=== PATIENT | female | born 1945 | race Caucasian/White ===

== ENCOUNTER 2018-02-28 12:52 | Emergency (ER) | payer MEDICARE ==
[~2018-02-28] VITALS: Ht 170.2 cm; Wt 86.4 kg
[~2018-02-28 12:52] MED LIST: ASPI-1009 PO; CALC-642; CHOL100010 PO; COL100C PO; HCTZ25T PO; LISI-600 PO; METF-436 PO; OMEP-84 PO; VITA100T3 PO
[2018-02-28 15:49] VITALS: BP 137/45
== END 2018-02-28 15:50 | disposition home or self-care (01) ==
LOC: ER 12:53
DX: S60.221A Contusion of right hand, initial encounter (principal); I10 Essential (primary) hypertension; E11.9 Type 2 diabetes mellitus without complications; Z90.49 Acquired absence of other specified parts of digestive tract; Z90.710 Acquired absence of both cervix and uterus; Z88.0 Allergy status to penicillin; Z79.82 Long term (current) use of aspirin; Z79.84 Long term (current) use of oral hypoglycemic drugs; Z79.899 Other long term (current) drug therapy; W01.0XXA Fall on same level from slipping, tripping and stumbling without subsequent striking against object, initial encounter; Y93.89 Activity, other specified; Y92.89 Other specified places as the place of occurrence of the external cause; Y99.8 Other external cause status
CPT/HCPCS: 29125; 73130; 99284; A4565; A6449

== ENCOUNTER 2018-03-12 13:35 | Outpatient (CLI) | payer MEDICARE ==
[2018-03-12 13:40] VITALS: BP 141/84
== END 2018-03-12 14:45 | disposition home or self-care (01) ==
LOC: ORTHO 13:35
PROVIDERS: ATTEND Nurse Practitioner Family
DX: S63.656A Sprain of metacarpophalangeal joint of right little finger, initial encounter (principal); I10 Essential (primary) hypertension; E11.9 Type 2 diabetes mellitus without complications; Z90.710 Acquired absence of both cervix and uterus; Z88.0 Allergy status to penicillin; X58.XXXA Exposure to other specified factors, initial encounter; Y93.89 Activity, other specified; Y92.89 Other specified places as the place of occurrence of the external cause; Y99.8 Other external cause status
CPT/HCPCS: 99213

== ENCOUNTER 2018-03-30 11:37 | Outpatient (CLI) | payer MEDICARE ==
[2018-03-30 11:40] VITALS: BP 134/84
== END 2018-03-30 12:05 | disposition home or self-care (01) ==
LOC: ORTHO 11:37
PROVIDERS: ATTEND Nurse Practitioner Family
DX: S63.654D Sprain of metacarpophalangeal joint of right ring finger, subsequent encounter (principal); I10 Essential (primary) hypertension; E11.9 Type 2 diabetes mellitus without complications; Z88.0 Allergy status to penicillin; X58.XXXD Exposure to other specified factors, subsequent encounter
CPT/HCPCS: 99213

== ENCOUNTER 2022-01-27 20:21 | Emergency (ER) | payer MEDICARE ==
[~2022-01-27] VITALS: Ht 170.2 cm; Wt 82.3 kg
[~2022-01-27 20:21] MED LIST changes: -HCTZ25T PO; +HYDR25TA5 PO; -LISI-600 PO; +LISI20TA28 PO
--- NOTE | 2022-01-27 21:20 | NUR ---
SPOKE WITH DR. GUERRERO ABOUT HEAD STRIKE WITH LOC, NO BLOOD THINNERS. VERBAL ORDER FOR CT SCAN.
--- NOTE | 2022-01-28 00:03 | NUR ---
PT HEAD LAC STARTED TO BLEED AGAIN PRIOR TO BEING SEEN. PT WAS ASSISTED BY EMT TO CLEAN THE AREA AND DRESS THE WOUND. PT RESTING IN BED.
[2022-01-28] MEDS ORDERED: LIDOcaine 1% W/epiNEPHrine 1:200,000 10ml vial IJ ONE (00:10)
[2022-01-28] MEDS ORDERED: LIDOcaine 1% W/epiNEPHrine 1:100,000 20ml vial IJ ONE (00:20)
[2022-01-28 01:37] VITALS: BP 138/66
== END 2022-01-28 01:43 | disposition home or self-care (01) ==
LOC: ER 20:22
DX: S01.01XA Laceration without foreign body of scalp, initial encounter (principal); S06.9X9A Unspecified intracranial injury with loss of consciousness of unspecified duration, initial encounter; I10 Essential (primary) hypertension; E11.9 Type 2 diabetes mellitus without complications; Z90.49 Acquired absence of other specified parts of digestive tract; Z90.710 Acquired absence of both cervix and uterus; Z88.0 Allergy status to penicillin; Z79.82 Long term (current) use of aspirin; Z79.899 Other long term (current) drug therapy; W19.XXXA Unspecified fall, initial encounter; Y93.89 Activity, other specified; Y92.89 Other specified places as the place of occurrence of the external cause; Y99.8 Other external cause status
CPT/HCPCS: 12001; 70450; 99284

== ENCOUNTER 2022-10-31 21:06 | Emergency (ER) | payer MEDICARE ==
[~2022-10-31] VITALS: Ht 170.2 cm; Wt 82.3 kg
[~2022-10-31 21:06] MED LIST changes: -ASPI-1009 PO; -CALC-642; -CHOL100010 PO; +CHOL50004 PO; -COL100C PO; +CYAN-34 PO; +DULA0.75 SQ; -LISI20TA28 PO; -METF-436 PO; +METF-438 PO; +SERT-434 PO; -VITA100T3 PO
[2022-10-31 21:46] VITALS: BP 180/66
[2022-11-01 01:24] LABS: CLARITY,URINE SLIGHTLY CLOUDY (Clear); COLOR,URINE YELLOW (Yellow); GLUCOSE, URINE NEGATIVE (Neg); KETONES,URINE NEGATIVE (Neg); LEUKOCYTE ESTERASE ,URINE NEGATIVE (Neg); NITRITES, URINE NEGATIVE (Neg); OCCULT BLOOD,URINE TRACE-INTACT (Neg); PROTEIN,URINE NEGATIVE (Neg)
[2022-11-01 01:33] LABS: UA COLLECTION TYPE CLN CATCH MIDSTREAM
[2022-11-01 01:35] LABS: BACTERIA,URINE FEW /HPF (Neg); MUCUS STRANDS FEW /LPF (Neg); RBC,URINE 0-2 /HPF (0-2); SQUAMOUS EPITHELIAL CELL,UR MANY /LPF (FEW); WBC,URINE 0-4 /HPF (0-4)
[2022-11-01] MEDS ORDERED: ibuprofen tablet 400 MG TABLET PO ONE (02:15)
[2022-11-01] MEDS ORDERED: LIDOcaine 5% patch TP STA (02:15)
[2022-11-01] MEDS ORDERED: acetaminophen 325mg tablet PO ONE (02:15)
== END 2022-11-01 02:26 | disposition home or self-care (01) ==
LOC: ER 21:07
DX: M54.59 Other low back pain (principal); E11.9 Type 2 diabetes mellitus without complications; I10 Essential (primary) hypertension; Z90.49 Acquired absence of other specified parts of digestive tract; Z88.0 Allergy status to penicillin; Z79.899 Other long term (current) drug therapy; Z79.1 Long term (current) use of non-steroidal anti-inflammatories (NSAID); Z79.2 Long term (current) use of antibiotics; W19.XXXA Unspecified fall, initial encounter; Y93.89 Activity, other specified; Y92.89 Other specified places as the place of occurrence of the external cause; Y99.8 Other external cause status
CPT/HCPCS: 72131; 81001; 99284

== ENCOUNTER 2024-02-07 14:48 | Emergency (ER) | payer MEDICARE ==
[~2024-02-07] VITALS: Ht 170.2 cm; Wt 80.6 kg
[2024-02-07 14:53] VITALS: BP 176/62; PULSE 63; RESP 16; TEMP 98; O2SAT 99
[2024-02-07] MEDS ORDERED: TRAM50TA2 PO (15:54)
== END 2024-02-07 16:46 | disposition home or self-care (01) ==
LOC: ER 14:48
DX: M54.50 Low back pain, unspecified (principal); I10 Essential (primary) hypertension; E11.9 Type 2 diabetes mellitus without complications; M25.552 Pain in left hip; R07.89 Other chest pain; Z88.0 Allergy status to penicillin; Z79.899 Other long term (current) drug therapy; Z90.710 Acquired absence of both cervix and uterus; W19.XXXA Unspecified fall, initial encounter; Y93.89 Activity, other specified; Y92.89 Other specified places as the place of occurrence of the external cause; Y99.8 Other external cause status
CPT/HCPCS: 72100; 72170; 99284

== ENCOUNTER 2024-02-23 11:56 | Emergency (ER) | payer MEDICARE ==
[~2024-02-23] VITALS: Ht 170.2 cm; Wt 81.8 kg
[2024-02-23 13:13] VITALS: TEMP 98
[2024-02-23] MEDS: hydrALAZINE 20mg/ml inj. IV ONE (13:35)
[2024-02-23] MEDS ORDERED: niCARDipine-NS 40mg/200ml IVPB 200 ML IV SCH (13:45)
[2024-02-23] MEDS: niCARDipine-NS 40mg/200ml IVPB 200 ML IV SCH (13:59)
[2024-02-23 14:10] LABS: BASOPHILS % (AUTO) 0.4 % (0-1); EOSINOPHILS # (AUTO) 0.2 X10'3 (0-0.9); EOSINOPHILS % (AUTO) 2.1 % (0-6); HEMATOCRIT 39.7 % (35.0-45.0); HEMOGLOBIN 13.5 g/dl (12.0-16.0); LYMPHOCYTES # (AUTO) 1.3 X10'3 (1.1-4.8); LYMPHOCYTES % (AUTO) 13.6 % (21-51); MEAN CORPUSCULAR HEMOGLOBIN 28.8 PG (27.0-31.0); MEAN CORPUSCULAR VOLUME 84.7 FL (78-98); MONOCYTES # (AUTO) 0.5 X10'3 (0-0.9); MONOCYTES % (AUTO) 5.6 % (2-12); NEUTROPHILS # (AUTO) 7.6 X10'3 (1.8-7.7); NEUTROPHILS % (AUTO) 78.3 % (42-75); PLATELET COUNT 153 X10'3 (140-440); RED BLOOD COUNT 4.69 X10'6 (4.20-5.60); RED CELL DISTRIBUTION WIDTH 15.7 % (11.5-14.5); WHITE BLOOD COUNT 9.7 X10'3 (4.5-11.0)
[2024-02-23 14:13] LABS: APTT 27 SECONDS (22-32); INR 1.1 INR; PROTHROMBIN TIME 11.6 SECONDS (9.0-12.0)
[2024-02-23 14:17] LABS: ALANINE AMINOTRANSFERASE 36 U/L (12-78); ALBUMIN 3.5 G/DL (3.4-5.0); ALBUMIN/GLOBULIN RATIO 0.9 (1.1-1.5); ALKALINE PHOSPHATASE 124 IU/L (46-116); ANION GAP 11 (8-16); ASPARTATE AMINO TRANSFERASE 31 U/L (10-37); BILIRUBIN,TOTAL 0.8 MG/DL (0.1-1.0); BLOOD UREA NITROGEN 12 MG/DL (7-18); BUN/CREATININE RATIO 14.5 (10.0-20.0); CALCIUM 9.1 MG/DL (8.5-10.1); CHLORIDE 101 MMOL/L (99-107); CREATININE 0.83 MG/DL (0.40-0.90); GLUCOSE 210 MG/DL (70-104); POTASSIUM 3.7 MMOL/L (3.5-5.1); SODIUM 139 MMOL/L (135-145); TOTAL PROTEIN 7.4 G/DL (6.4-8.2); eCRCL 56 ML/MIN; eGFR 67 ML/MIN
[2024-02-23 14:31] VITALS: BP 151/79; PULSE 83; RESP 20; O2SAT 97
[2024-02-23] MEDS: phytonadione inj. 10 MG in normal saline 100ml IV soln 100 ML IV ONE (14:42)
== END 2024-02-23 14:53 | disposition admitted as inpatient to this hospital (09) ==
LOC: ER 11:57
DX: I62.00 Nontraumatic subdural hemorrhage, unspecified (principal); I10 Essential (primary) hypertension; E11.9 Type 2 diabetes mellitus without complications; Z90.49 Acquired absence of other specified parts of digestive tract; Z90.710 Acquired absence of both cervix and uterus; Z95.0 Presence of cardiac pacemaker; Z88.0 Allergy status to penicillin; Z79.899 Other long term (current) drug therapy
CPT/HCPCS: 36415; 70450; 72125; 80053; 85025; 85610; 85730; 93005; 96365; 96375; 99291; C1758; J0360; J3430; J3490

== ENCOUNTER 2024-08-19 05:46 | Inpatient (IN) | payer MEDICARE ==
[2024-08-12 11:13] LABS: BILIRUBIN,URINE NEGATIVE (Neg); CLARITY,URINE CLOUDY (Clear); COLOR,URINE YELLOW (Yellow); GLUCOSE, URINE NEGATIVE (Neg); KETONES,URINE TRACE mg/dl (Neg); LEUKOCYTE ESTERASE ,URINE NEGATIVE (Neg); NITRITES, URINE NEGATIVE (Neg); OCCULT BLOOD,URINE NEGATIVE (Neg); PH,URINE 5.5 (4.8-8.0); PROTEIN,URINE NEGATIVE (Neg); UA COLLECTION TYPE CLN CATCH MIDSTREAM; UROBILINOGEN,URINE 0.2 E.U/dL (0.2-1.0)
[2024-08-12 11:14] LABS: BASOPHILS # (AUTO) 0.1 X10'3 (0-0.2); BASOPHILS % (AUTO) 0.6 % (0-1); EOSINOPHILS # (AUTO) 0.2 X10'3 (0-0.9); EOSINOPHILS % (AUTO) 1.7 % (0-6); LYMPHOCYTES # (AUTO) 1.3 X10'3 (1.1-4.8); LYMPHOCYTES % (AUTO) 14.8 % (21-51); MEAN CORPUSCULAR HGB CONC 33.9 g/dL (33.0-36.5); MEAN CORPUSCULAR VOLUME 85.6 FL (78-98); MEAN PLATELET VOLUME 8.5 FL (7.4-10.4); MONOCYTES # (AUTO) 0.6 X10'3 (0-0.9); MONOCYTES % (AUTO) 6.6 % (2-12); NEUTROPHILS # (AUTO) 6.9 X10'3 (1.8-7.7); NEUTROPHILS % (AUTO) 76.3 % (42-75); PRE OP HEMATOCRIT 40.6 % (35.0-45.0); PRE OP HEMOGLOBIN 13.8 g/dL (12.0-16.0); PRE OP PLATELET COUNT 158 X10'3 (140-440); RED BLOOD COUNT 4.75 X10'6 (4.20-5.60); RED CELL DISTRIBUTION WIDTH 15.4 % (11.5-14.5)
[2024-08-12 11:22] LABS: SQUAMOUS EPITHELIAL CELL,UR MANY /LPF (FEW)
[2024-08-12 11:23] LABS: BACTERIA,URINE 2+ /HPF (Neg); CAL OXALATE CRYSTALS 3+ /HPF (NEGATIVE); MUCUS STRANDS MANY /LPF (Neg)
[2024-08-12 11:24] LABS: RBC,URINE 0-2 /HPF (0-2); TRANSITIONAL EPI CELLS,URINE FEW /HPF; WBC,URINE 0-4 /HPF (0-4)
[2024-08-12 11:27] LABS: PRE OP INR 1.1 INR; PRE OP PROTIME 11.4 SECONDS (9.0-12.0)
[2024-08-12 11:34] LABS: ALBUMIN 3.7 G/DL (3.4-5.0); ALBUMIN/GLOBULIN RATIO 0.9 (1.1-1.5); ALKALINE PHOSPHATASE 81 IU/L (46-116); BLOOD UREA NITROGEN 16 MG/DL (7-18); BUN/CREATININE RATIO 17.4 (10.0-20.0); CALCIUM 9.5 MG/DL (8.5-10.1); CHLORIDE 101 MMOL/L (99-107); CREATININE 0.92 MG/DL (0.40-0.90); PRE OP ALT 32 U/L (30-65); PRE OP ANION GAP 11 (8-16); PRE OP AST 30 U/L (10-37); PRE OP BILIRUB, TOTAL 0.8 MG/DL (0.0-1.0); PRE OP GLUCOSE 131 MG/DL (70-104); PRE OP POTASSIUM 3.7 MMOL/L (3.4-5.1); PRE OP SODIUM 139 MMOL/L (135-145); TOTAL CARBON DIOXIDE 27.5 MMOL/L (24-32); TOTAL PROTEIN 7.9 G/DL (6.4-8.2); eGFR 59 ML/MIN
[2024-08-19] VITALS (30 sets, daily range): BP systolic 118–178; BP diastolic 53–83; PULSE 60–82; RESP 10–22; TEMP 97.4–98.1; O2SAT 92–100
[~2024-08-19] VITALS: Ht 170.2 cm; Wt 81.1 kg
[~2024-08-19 05:46] MED LIST changes: +DICL100G59 TOP; +LISI10TA27 PO; -OMEP-84 PO
[2024-08-19] MEDS: VANCOMYCIN 1,500MG inj. 1,500 MG in normal saline 500ml IV soln 300 ML IV ONE (06:28)
[2024-08-19] MEDS: ringers solution, lacted 1,000 ML IV SCH (06:28)
[2024-08-19] MEDS: famotidine 20mg tablet PO ONE (06:28)
[2024-08-19] MEDS ORDERED: iohexol 350MG/ML 100ml bottle IV ONE (08:17)
[2024-08-19] MEDS ORDERED: sevoflurane 250ml liquid IH ONE (08:23)
[2024-08-19] MEDS ORDERED: fentaNYL/PF 50MCG/1 ML 2ML syringe ONE (08:24)
[2024-08-19] MEDS ORDERED: APIX5TAB3 PO (08:24)
[2024-08-19] MEDS ORDERED: propofol inj 20 ML IV ONE (08:25)
[2024-08-19] MEDS ORDERED: midazolam 1 mg/ML 2ml injection ONE (08:25)
[2024-08-19] MEDS ORDERED: heparin 1,000unit/ml 10ml vial 10 ML ONE (08:51)
[2024-08-19] MEDS ORDERED: rocuronium 10mg/ml inj IV ONE (08:51)
[2024-08-19] MEDS ORDERED: proCHLORperazine 10 MG/2 ml inj IV PRN ×2 (08:55→09:30)
[2024-08-19] MEDS ORDERED: ondansetron/PF 4mg/2ml inj IV PRN ×2 (08:55→09:30)
[2024-08-19] MEDS ORDERED: morphine 2 MG/ML inj. syringe IV PRN (08:55)
[2024-08-19] MEDS ORDERED: meperidine/PF 25mg/ml syringe IV PRN ×3 (08:55)
[2024-08-19] MEDS ORDERED: morphine 4 MG/ML inj SYRINge IV PRN (08:55)
[2024-08-19] MEDS ORDERED: ringers solution, lacted 1,000 ML IV SCH (08:55)
[2024-08-19] MEDS ORDERED: labetalol 20mg/4ml (5mg/ml) syringe IV PRN ×2 (08:55→09:30)
[2024-08-19] MEDS ORDERED: glycopyrrolate 0.2mg/ml inj ONE (09:08)
[2024-08-19] MEDS ORDERED: neostigmine methylsulfate 1 MG/ML 10ml vial ONE (09:08)
[2024-08-19] MEDS ORDERED: docusate sod 100mg capsule PO PRN (09:30)
[2024-08-19] MEDS ORDERED: potassium Cl 40MEQ/1/2NS 520ml 520 ML IV PRN (09:30)
[2024-08-19] MEDS ORDERED: DEXTROSE 15 GM of carb/4 tabs (each vial/BOTTLE has 4 tablets) PO PRN ×2 (09:30)
[2024-08-19] MEDS ORDERED: acetaminophen 325mg tablet PO PRN (09:30)
[2024-08-19] MEDS ORDERED: pantoprazole 40mg Tablet.DR PO PRN (09:30)
[2024-08-19] MEDS ORDERED: magnesium sulf-water 4G/100mL 100 ML IV PRN (09:30)
[2024-08-19] MEDS ORDERED: hydrALAZINE 20mg/ml inj. IV PRN (09:30)
[2024-08-19] MEDS ORDERED: magnesium sulf-water 2g/50mL 50 ML IV PRN (09:30)
[2024-08-19] MEDS ORDERED: diphenhydrAMINE 25mg capsule PO PRN (09:30)
[2024-08-19] MEDS ORDERED: glucagon, human recombinant 1mg kit SUBCUT PRN (09:30)
[2024-08-19] MEDS ORDERED: potassium CL 10mEq/100ml bag 100 ML IV PRN (09:30)
[2024-08-19] MEDS ORDERED: HYDROcodone/acetaminophen 5mg/325mg tablet PO PRN (09:30)
[2024-08-19] MEDS ORDERED: ALPRAZolam 0.25mg tablet PO PRN (09:30)
[2024-08-19] MEDS ORDERED: dextrose 50%-water 50ml dispensing syringe IV PRN ×2 (09:30)
[2024-08-19] MEDS ORDERED: potassium Cl 40MEQ/270ML bag 250 ML IV PRN (09:30)
[2024-08-19] MEDS ORDERED: potassium Cl 20mEq/100mL bag 100 ML IV PRN (09:30)
[2024-08-19] MEDS ORDERED: potassium Cl 20 mEq SR tablet PO PRN (09:30)
[2024-08-19] MEDS ORDERED: normal saline 1000ml 1,000 ML IV SCH (09:30)
[2024-08-19] MEDS ORDERED: LIDOCAINE 2%/EPI 1:100,000 inj. Multi-dose 20 ML VIAL ONE (11:12)
[2024-08-19] MEDS: INSULIN LISPRO 100 UNIT/ML INSULN.PEN MULTI-DOSE SQ SCH (12:00)
[2024-08-19] MEDS ORDERED: INSULIN LISPRO 100 UNIT/ML INSULN.PEN MULTI-DOSE SQ SCH (12:00)
[2024-08-19] MEDS: sod chloride 0.9% 10ml flush syringe IV SCH (16:00)
[2024-08-19] MEDS ORDERED: non-formulary drug (Metformin HCl 1 TAB) PO SCH (20:00)
[2024-08-19] MEDS: VANCOMYCIN 1GM 200ML H20 (PEG) 200 ML IV SCH (22:32)
[2024-08-19] MEDS: sertraline 50mg tablet PO SCH (22:36)
[2024-08-20 02:00] VITALS: BP 127/47; PULSE 57; RESP 19; TEMP 97.6; O2SAT 95
[2024-08-20 06:11] LABS: BASOPHILS % (AUTO) 0.4 % (0-1); EOSINOPHILS # (AUTO) 0.1 X10'3 (0-0.9); EOSINOPHILS % (AUTO) 2.2 % (0-6); HEMATOCRIT 38.1 % (35.0-45.0); HEMOGLOBIN 12.9 g/dl (12.0-16.0); LYMPHOCYTES % (AUTO) 14.4 % (21-51); MEAN CORPUSCULAR HGB CONC 33.7 g/dL (33.0-36.5); MEAN CORPUSCULAR VOLUME 86.1 FL (78-98); MONOCYTES # (AUTO) 0.4 X10'3 (0-0.9); MONOCYTES % (AUTO) 6.3 % (2-12); NEUTROPHILS # (AUTO) 5.1 X10'3 (1.8-7.7); NEUTROPHILS % (AUTO) 76.7 % (42-75); PLATELET COUNT 117 X10'3 (140-440); RED BLOOD COUNT 4.43 X10'6 (4.20-5.60); RED CELL DISTRIBUTION WIDTH 15.3 % (11.5-14.5); WHITE BLOOD COUNT 6.6 X10'3 (4.5-11.0)
[2024-08-20 06:20] LABS: INR 1.1 INR; PROTHROMBIN TIME 11.4 SECONDS (9.0-12.0)
[2024-08-20 06:39] LABS: ALANINE AMINOTRANSFERASE 26 U/L (12-78); ALBUMIN 3.2 G/DL (3.4-5.0); ALBUMIN/GLOBULIN RATIO 0.9 (1.1-1.5); ALKALINE PHOSPHATASE 86 IU/L (46-116); ANION GAP 9 (8-16); ASPARTATE AMINO TRANSFERASE 28 U/L (10-37); BILIRUBIN,TOTAL 1.1 MG/DL (0.1-1.0); BLOOD UREA NITROGEN 9 MG/DL (7-18); BUN/CREATININE RATIO 10.5 (10.0-20.0); CALCIUM 8.5 MG/DL (8.5-10.1); CHLORIDE 106 MMOL/L (99-107); CREATININE 0.86 MG/DL (0.40-0.90); GLUCOSE 162 MG/DL (70-104); MAGNESIUM 1.9 MG/DL (1.5-2.4); POTASSIUM 3.5 MMOL/L (3.5-5.1); PRO BRAIN NATRIURETIC PEPTIDE 741 PG/ML (0-450); SODIUM 142 MMOL/L (135-145); TOTAL CARBON DIOXIDE 27.5 MMOL/L (24-32); TOTAL PROTEIN 6.6 G/DL (6.4-8.2); eCRCL 53 ML/MIN; eGFR 64 ML/MIN
[2024-08-20 06:56] VITALS: BP 172/71; PULSE 60; RESP 13; TEMP 97.6; O2SAT 99
[2024-08-20 07:53] VITALS: BP_SYST 172; PULSE 60
[2024-08-20] MEDS: lisinopril 10 MG tablet PO SCH (07:53)
[2024-08-20] MEDS: HYDROchlorothiazide 25mg tablet PO SCH (07:53)
[2024-08-20] MEDS: cholecalciferol (vitamin D3) 1,000 unit (25mcg) tablet PO SCH (07:53)
[2024-08-20] MEDS: apixaban 5mg tablet PO SCH (07:53)
[2024-08-20] MEDS ORDERED: CYANOCOBALAMIN PO SCH (08:00)
[2024-08-20 08:20] VITALS: RESP 13; O2SAT 99
== END 2024-08-20 12:45 | disposition home or self-care (01) | DRG 274 ==
LOC: PAS IN 05:46 → PCU 3S 17:25
PROVIDERS: ADMIT Student in an Organized Health Care Education/Training Program; ATTEND Student in an Organized Health Care Education/Training Program
PROC: B24BZZ4 Ultrasonography of Heart with Aorta, Transesophageal (ICD-10-PCS; 2024-08-19)
PROC: 02L73DK Occlusion of Left Atrial Appendage with Intraluminal Device, Percutaneous Approach (ICD-10-PCS; principal; 2024-08-19 08:23)
DX: I48.91 Unspecified atrial fibrillation (principal); Z00.6 Encounter for examination for normal comparison and control in clinical research program; I10 Essential (primary) hypertension; E11.9 Type 2 diabetes mellitus without complications; E78.5 Hyperlipidemia, unspecified; Z88.0 Allergy status to penicillin
CPT/HCPCS: 33340; 36415; 71045; 71046; 76937; 80053; 81001; 82948; 83036; 83735; 83880; 85025; 85347; 85610; 85730; 86885; 86900; 86901; 86920; 87081; 93005; 93308; 93312; 93325; A4615; A4618; A6258; A6449; C1760; C1889; C1893; G0378; J1644; J1815; J2250; J2704; J2710; J3010; J3370; J3372; J3490; J7040; J7120; Q9967

== ENCOUNTER 2024-10-11 10:45 | Day surgery (SDC) | payer MEDICARE ==
[2024-10-11] VITALS (13 sets, daily range): BP systolic 156–223; BP diastolic 68–107; PULSE 60–80; RESP 10–12; TEMP 97.9; O2SAT 97–100
[~2024-10-11] VITALS: Ht 170.2 cm; Wt 81.6 kg
[~2024-10-11 10:45] MED LIST changes: +APIX5TAB3 PO
[2024-10-11 11:44] LABS: BASOPHILS % (AUTO) 0.5 % (0-1); EOSINOPHILS # (AUTO) 0.2 X10'3 (0-0.9); EOSINOPHILS % (AUTO) 2.1 % (0-6); HEMOGLOBIN 13.5 g/dl (12.0-16.0); LYMPHOCYTES # (AUTO) 1.1 X10'3 (1.1-4.8); LYMPHOCYTES % (AUTO) 15.9 % (21-51); MEAN CORPUSCULAR HEMOGLOBIN 29.5 PG (27.0-31.0); MEAN CORPUSCULAR HGB CONC 34.7 g/dL (33.0-36.5); MEAN CORPUSCULAR VOLUME 84.9 FL (78-98); MEAN PLATELET VOLUME 7.9 FL (7.4-10.4); MONOCYTES # (AUTO) 0.4 X10'3 (0-0.9); MONOCYTES % (AUTO) 5.8 % (2-12); NEUTROPHILS # (AUTO) 5.5 X10'3 (1.8-7.7); NEUTROPHILS % (AUTO) 75.7 % (42-75); PLATELET COUNT 126 X10'3 (140-440); RED CELL DISTRIBUTION WIDTH 14.9 % (11.5-14.5); WHITE BLOOD COUNT 7.2 X10'3 (4.5-11.0)
[2024-10-11 12:16] LABS: APTT 25 SECONDS (22-32); INR 1.1 INR; PROTHROMBIN TIME 11.2 SECONDS (9.0-12.0)
[2024-10-11 12:18] LABS: ALBUMIN 3.8 G/DL (3.4-5.0); ANION GAP 8 (8-16); BLOOD UREA NITROGEN 11 MG/DL (7-18); BUN/CREATININE RATIO 14.9 (10.0-20.0); CALCIUM 9.3 MG/DL (8.5-10.1); CHLORIDE 104 MMOL/L (99-107); CREATININE 0.74 MG/DL (0.40-0.90); GLUCOSE 191 MG/DL (70-104); POTASSIUM 3.3 MMOL/L (3.5-5.1); SODIUM 142 MMOL/L (135-145); eCRCL 62 ML/MIN; eGFR 76 ML/MIN
[2024-10-11] MEDS: MIDAZolam 1mg/ml 10ml vial IV ONE (12:33)
[2024-10-11] MEDS: fentaNYL/PF 50MCG/1 ML 2ML syringe IV ONE (12:34)
== END 2024-10-11 13:40 | disposition home or self-care (01) ==
LOC: SSTAY O 10:45
PROVIDERS: ATTEND Student in an Organized Health Care Education/Training Program
DX: I48.91 Unspecified atrial fibrillation (principal); E11.9 Type 2 diabetes mellitus without complications; I10 Essential (primary) hypertension; E78.5 Hyperlipidemia, unspecified; I47.10 Supraventricular tachycardia, unspecified; K21.9 Gastro-esophageal reflux disease without esophagitis; G47.33 Obstructive sleep apnea (adult) (pediatric); Z90.89 Acquired absence of other organs; Z86.73 Personal history of transient ischemic attack (TIA), and cerebral infarction without residual deficits; Z98.890 Other specified postprocedural states; Z95.0 Presence of cardiac pacemaker; Z79.899 Other long term (current) drug therapy
CPT/HCPCS: 36415; 80048; 82948; 85025; 85610; 85730; 93312; 93325; J2250; J3010; J7030

== ENCOUNTER 2025-04-26 19:45 | Emergency (ER) | payer MEDICARE ==
[~2025-04-26] VITALS: Ht 170.2 cm; Wt 83.0 kg
[2025-04-26 20:32] VITALS: TEMP 98.1
--- NOTE | 2025-04-26 20:55 | Physician Documentation ---
History of Present Illness ~ Chief Complaint: Weakness Stated Complaint: WEAKNESS Time Seen by MD: 20:54 OK to notify your PCP?: Yes Primary Medical Doctor: DARSHANA CRUZ Patient presents to the emergency room with left knee pain. She also incidentally tested positive for COVID earlier today at the [facility]. She was unaware that she had COVID but retrospectively states she has been having some cough for the past three or four days. That states that it was not her cough that brought her in but rather her left knee. She states the pain is bad enough to where she can not walk with it. She states it has been giving her problems for many years and was offered to have it replaced but she declined as she wanted to wait a bit longer he had now she feels it is time that she would like her knee replaced. Medication Reconciliation Allergies: Coded Allergies: Penicillins (Verified Allergy, Intermediate, WHOLE BODY ITCH, INCREASED SKIN SENSITIVITY, 04/26/25) Scheduled Apixaban (Eliquis), 5 MG PO BID, (Reported) Cholecalciferol (Vitamin D3) (Vitamin D3), 1 CAP PO DAILY, (Reported) Cyanocobalamin (Vitamin B-12) (Vitamin B-12), 1 CAP PO DAILY, (Reported) Dulaglutide (Trulicity), 0.5 ML SQ Q7D, (Reported) Hydrochlorothiazide (Hydrochlorothiazide), 25 MG PO DAILY, (Reported) Lisinopril (Lisinopril), 1 TAB PO DAILY, (Reported) Metformin HCl (Metformin HCl), 1 TAB PO BID, (Reported) Sertraline HCl (Sertraline HCl), 1 TAB PO BID, (Reported) Scheduled PRN Diclofenac Sodium (Diclofenac Sodium), 2 GM TOP QID PRN for pain, (Reported) Past Medical History Past Medical History: Hypertension, Diabetes Past Surgical History: appendectomy, hysterectomy, pacemaker Alcohol Use: None Drug Use: none Lives with: Spouse Lives In: Home Occupation: retired Review of Systems ROS All review of systems negative except as per HPI Physical Exam Vital Signs: Temperature: 98.1, Heart Rate: 69, Respiratory Rate: 16, BP: 135/63, Pulse Oximetry: 99, Weight: 83.000 Oxygen Flow Rate: 0 Physical Exam General: Patient is awake, alert, oriented x4 in no acute distress Head: Normocephalic and atraumatic. Eyes: Conjunctival normal. EOMI. PERRL. ENT: Mucous membranes moist. Neck: Supple, trachea is midline. Chest: Clear to auscultation bilaterally without rales, rhonchi, or wheezes. There is no accessory muscle use or retractions. Cardiac: RRR without murmurs, gallops, or rubs. Abd: Soft, nondistended, nontender, with normoactive bowel sounds. No guarding, rebound, or rigidity. Extremities: Right leg normal, left leg with diffuse swelling to left knee Progress Results/Orders Results/Orders Completed Orders - ATIF TALBERT MD Ketorolac Trometh 15mg/Ml Vial (Toradol (04/26/25 21:00) Acetaminophen 1,000mg/100ml Iv (Ofirmev (04/26/25 21:00) Normal Saline 1000ml (0.9% Sodium Chlori (04/26/25 21:00) Medications Received in ER Medications (Trade) Dose Ordered Sig/Carlos Enrique Route PRN Reason Start Time Stop Time Status Last Admin Dose Admin (Toradol injection) 15 mg ONCE ONCE IV 04/26/25 21:00 04/26/25 21:09 DC 04/26/25 21:13 15 MG Acetaminophen 100 ml @ 400 mls/hr ONCE ONCE IV 04/26/25 21:00 04/26/25 21:14 DC 04/26/25 21:13 400 MLS/HR Sodium Chloride 1,000 ml @ 1,000 mls/hr ONCE ONCE IV 04/26/25 21:00 04/26/25 21:59 DC 04/26/25 21:13 1,000 MLS/HR Vital Signs 04/26/25 04/26/25 04/26/25 04/26/25 20:32 20:40 20:41 21:13 Temp 98.1 Pulse 69 69 Resp 16 16 16 B/P (MAP) 135/63 135/63 (87) Pulse Ox 96 99 O2 Flow Rate 0 0 04/26/25 21:34 Pulse 90 Resp 16 B/P (MAP) 138/74 (95) Pulse Ox 98 O2 Flow Rate 0 Medical Decision Making Findings Patient is feeling much better in his asking to leave. Patient presented to the emergency room with knee pain. Differentials include but are not limited to arthritis, DVT, Corrales's cysts, septic arthritis. Given physical exam and overall presentation and history I do not think she is suffering from septic arthritis or DVT but rather arthritic flare especially in light of her history. She is responding to therapy. [id number] remedies discussed. Treatment for COVID also discussed as well as ER precautions. Very low suspicion for DVT. No calf tenderness to palpation. She has passed the road test and states she has ibuprofen and Tylenol at home Departure Disposition: HOME / SELF CARE / HOMELESS Impression: Primary Impression: Knee pain Additional Impression: COVID Condition: Improved Discharge Instructions: Chronic Knee Pain, Adult, [id number] Additional Instructions: Call your doctor tomorrow to arrange for follow up for definitive management of your knee. Ibuprofen and Tylenol may be taken together for pain. Stay hydrated Referrals: NO PRIMARY CARE PROVIDER (PCP) Prescriptions Ondansetron 8mg ODT (Ondansetron Odt) 8 Mg Tab.rapdis 1 TAB PO Q6H for nausea/vomiting for 3 Days, #12 TAB 0 Refills Prov: ATIF TALBERT MD 04/26/25 Education Educated: Patient Educated regarding: diagnosis, treatment, need for follow up Signature Scribe Signature: No scribe Attestation: The note accurately reflects work and decisions made by me.Atif Talbert MD 04/26/25 22:38 ATIF TALBERT MD Apr 26, 2025 20:55
[2025-04-26] MEDS: normal saline 1000ml 1,000 ML IV ONE (21:13)
[2025-04-26] MEDS: acetaminophen 1,000mg/100ml IV 100 ML IV ONE (21:13)
[2025-04-26] MEDS: ketorolac trometh 15mg/ml vial 15 MG/ML ML IV ONE (21:13)
[2025-04-26] MEDS ORDERED: ONDA-245 PO (22:37)
[2025-04-26 22:46] VITALS: BP 138/51; PULSE 74; RESP 16; O2SAT 98
== END 2025-04-26 22:47 | disposition home or self-care (01) ==
LOC: ER 19:45
DX: U07.1 COVID-19 (principal); M25.562 Pain in left knee; I10 Essential (primary) hypertension; E11.9 Type 2 diabetes mellitus without complications; Z88.0 Allergy status to penicillin; Z90.710 Acquired absence of both cervix and uterus; Z90.49 Acquired absence of other specified parts of digestive tract; Z95.0 Presence of cardiac pacemaker; Z79.899 Other long term (current) drug therapy; Z79.84 Long term (current) use of oral hypoglycemic drugs
CPT/HCPCS: 96361; 96374; 96375; 99284; J0131; J1885; J7030